=== PATIENT | male | born 2005 | race African-American/Black ===

== ENCOUNTER 2023-03-30 18:23 | Emergency (ER) | payer SELFPAY ==
[2023-03-30 19:14] LABS: CORONAVIRUS COVID-19 NAA NEGATIVE (NEGATIVE); INFLUENZA A NAA NEGATIVE (NEGATIVE); INFLUENZA B NAA NEGATIVE (NEGATIVE)
[2023-03-30] MEDS ORDERED: Ondansetron 4 MG Tab.DIS PO ONE (19:50)
== END 2023-03-30 19:56 | disposition home or self-care (01) ==
LOC: MW.ED 18:23
DX: J11.1 Influenza due to unidentified influenza virus with other respiratory manifestations (principal); Z20.822 Contact with and (suspected) exposure to COVID-19
CPT/HCPCS: 0240U; 87651; 99283; A9270

== ENCOUNTER 2023-08-26 13:24 | Emergency (ER) | payer SELFPAY ==
[2023-08-26] MEDS: Ketorolac 30 MG/ML SDV IVPUSH ONE (14:23)
[2023-08-26] MEDS: Sodium Chloride 0.9% 10 ML Syringe FLUSH PRN (14:23)
[2023-08-26] MEDS: Sodium Chloride 0.9% 1,000 ML IV ONE (14:23)
[2023-08-26] MEDS: Sodium Chloride 0.9% 2.5 ML Syringe FLUSH PRN (14:23)
[2023-08-26 14:24] LABS: BASOPHILS ABSOLUTE AUTO 0.02 K/uL (0.00-0.30); BASOPHILS PERCENT AUTO 0.2 % (0.0-1.0); EOSINOPHILS ABSOLUTE AUTO 0.03 K/uL (0.00-0.70); EOSINOPHILS PERCENT AUTO 0.4 % (0.0-5.0); HEMATOCRIT 41.4 % (42.0-52.0); HEMOGLOBIN 14.8 g/dL (14.0-18.0); IMMATURE GRAN ABSOLUTE AUTO 0.02 K/uL (0.00-0.05); IMMATURE GRAN PERCENT AUTO 0.2 % (0.0-0.4); LYMPHOCYTES ABSOLUTE AUTO 0.66 K/uL (2.00-8.80); LYMPHOCYTES PERCENT AUTO 7.7 % (50.0-65.0); MEAN CORPUSCULAR HEMOGLOBIN 30.8 pg (28.0-32.0); MEAN CORPUSCULAR HGB CONC 35.7 g/dL (32.0-36.0); MEAN CORPUSCULAR VOLUME 86.3 fL (83.0-99.0); MEAN PLATELET VOLUME 8.7 fL (9.4-12.4); MONOCYTES ABSOLUTE AUTO 1.47 K/uL (0.10-1.40); MONOCYTES PERCENT AUTO 17.2 % (2.0-10.0); NEUTROPHILS ABSOLUTE AUTO 6.34 K/uL (1.50-8.50); NEUTROPHILS PERCENT AUTO 74.3 % (35.0-45.0); PLATELET COUNT,PLT 270 K/uL (150-400); WHITE BLOOD CELL COUNT,WBC 8.54 K/uL (4.5-13.5)
[2023-08-26 14:26] LABS: CORONAVIRUS COVID-19 NAA NEGATIVE (NEGATIVE); INFLUENZA A NAA NEGATIVE (NEGATIVE); INFLUENZA B NAA NEGATIVE (NEGATIVE); RESPIRATORY SYNCYTIAL VIR NAA NEGATIVE (NEGATIVE)
[2023-08-26 14:58] LABS: A/G RATIO 1.1 (0.9-1.6); BILIRUBIN TOTAL 1.6 mg/dL (0.2-1.0); CARBON DIOXIDE,CO2 25.4 mmol/L (21.0-32.0); CREATININE 1.3 mg/dL (0.8-1.3); EST CRCL DRUG DOSING (CG) 87.96 mL/min; MAGNESIUM 1.7 mg/dL (1.8-2.4); POTASSIUM,K 3.7 mmol/L (3.5-5.1); PROTEIN TOTAL,TP 7.8 g/dL (6.4-8.2)
== END 2023-08-26 16:20 | disposition home or self-care (01) ==
LOC: MW.ED 13:24
DX: M79.18 Myalgia, other site (principal); M54.50 Low back pain, unspecified; R74.8 Abnormal levels of other serum enzymes; Z75.8 Other problems related to medical facilities and other health care
CPT/HCPCS: 0241U; 36415; 80053; 82550; 83690; 83735; 85025; 96361; 96374; 99283; J1885; J3490; J7030; 99284

== ENCOUNTER 2023-09-23 17:56 | Emergency (ER) | payer SELFPAY | END 2023-09-23 20:35 | disposition home or self-care (01) | LOC: MW.ED 17:56 | DX: S93.402A Sprain of unspecified ligament of left ankle, initial encounter (principal); X50.1XXA Overexertion from prolonged static or awkward postures, initial encounter; Y93.67 Activity, basketball | CPT/HCPCS: 73562-26-LT; 73562-LT; 73590-26-LT; 73590-LT; 73610-26-LT; 73610-LT; 73630-26-LT; 73630-LT; 99283 ==

== ENCOUNTER 2023-10-18 19:18 | Emergency (ER) | payer SELFPAY | END 2023-10-18 20:50 | disposition home or self-care (01) | LOC: MW.ED 19:18 | DX: S93.401A Sprain of unspecified ligament of right ankle, initial encounter (principal); F17.210 Nicotine dependence, cigarettes, uncomplicated; Z75.8 Other problems related to medical facilities and other health care; X50.1XXA Overexertion from prolonged static or awkward postures, initial encounter | CPT/HCPCS: 73610-26-RT; 73610-RT; 73630-26-RT; 73630-RT; 99283 ==

== ENCOUNTER 2023-12-27 00:45 | Emergency (ER) | payer SELFPAY ==
[2023-12-27] MEDS: Doxycycline 100 MG Cap PO ONE (01:37)
[2023-12-27] MEDS: Ibuprofen 400 MG Tab PO ONE (01:37)
== END 2023-12-27 01:40 | disposition home or self-care (01) ==
LOC: MW.ED 00:45
DX: R04.2 Hemoptysis (principal); Z91.048 Other nonmedicinal substance allergy status; Z91.011 Allergy to milk products; Z79.51 Long term (current) use of inhaled steroids; Z79.899 Other long term (current) drug therapy
CPT/HCPCS: 71046; 99283; A9270

== ENCOUNTER 2024-04-07 22:47 | Emergency (ER) | payer SELFPAY ==
[2024-04-08] MEDS: Acetaminophen/HYDROcodone 325-10 MG Tab PO STA (01:03)
== END 2024-04-08 03:05 | disposition home or self-care (01) ==
LOC: MW.ED 22:47
DX: S02.5XXA Fracture of tooth (traumatic), initial encounter for closed fracture (principal); Z91.011 Allergy to milk products; Z91.09 Other allergy status, other than to drugs and biological substances; W21.02XA Struck by soccer ball, initial encounter
CPT/HCPCS: 70486; 99283; A9270

== ENCOUNTER 2024-08-07 22:24 | Emergency (ER) | payer SELFPAY ==
[2024-08-08] MEDS: Dexamethasone 4 MG Tab PO ONE (00:53)
[2024-08-08] MEDS: Albuterol 8 GM Inhaler INH ONE (00:53)
== END 2024-08-08 01:01 | disposition home or self-care (01) ==
LOC: MW.ED 22:24
DX: R06.2 Wheezing (principal); Z91.048 Other nonmedicinal substance allergy status; Z91.011 Allergy to milk products; Z79.51 Long term (current) use of inhaled steroids
CPT/HCPCS: 87428; 99284; A9270; J8540; 99283

== ENCOUNTER 2024-09-13 18:28 | Emergency (ER) | payer SELFPAY | END 2024-09-13 19:56 | disposition home or self-care (01) | LOC: MW.ED 18:28 | DX: Z91.011 Allergy to milk products (principal); Z91.048 Other nonmedicinal substance allergy status; J01.10 Acute frontal sinusitis, unspecified | CPT/HCPCS: 99283 ==

== ENCOUNTER 2024-09-25 20:01 | Emergency (ER) | payer SELFPAY ==
[2024-09-25] MEDS: Ondansetron 4 MG Tab.DIS PO ONE (20:28)
== END 2024-09-25 20:55 | disposition home or self-care (01) ==
LOC: MW.ED 20:01
DX: Z76.0 Encounter for issue of repeat prescription (principal); Z75.3 Unavailability and inaccessibility of health-care facilities; Z91.048 Other nonmedicinal substance allergy status; Z91.011 Allergy to milk products; Z79.899 Other long term (current) drug therapy
CPT/HCPCS: 99281; A9270; 99282

== ENCOUNTER 2024-11-13 07:21 | Emergency (ER) | payer SELFPAY | END 2024-11-13 08:20 | disposition home or self-care (01) | LOC: MW.ED 07:21 | DX: Z76.0 Encounter for issue of repeat prescription (principal); J45.909 Unspecified asthma, uncomplicated; Z87.891 Personal history of nicotine dependence; Z91.011 Allergy to milk products; Z91.048 Other nonmedicinal substance allergy status; Z79.51 Long term (current) use of inhaled steroids | CPT/HCPCS: 99281; 99282 ==

== ENCOUNTER 2024-11-15 07:49 | Emergency (ER) | payer SELFPAY | END 2024-11-15 09:10 | disposition home or self-care (01) | LOC: MW.ED 07:49 | DX: J40 Bronchitis, not specified as acute or chronic (principal); Z91.011 Allergy to milk products; Z91.048 Other nonmedicinal substance allergy status; Z75.3 Unavailability and inaccessibility of health-care facilities; Z79.51 Long term (current) use of inhaled steroids; Z79.899 Other long term (current) drug therapy | CPT/HCPCS: 71046; 71046-26; 99282; 99284 ==

== ENCOUNTER 2025-01-23 09:09 | Emergency (ER) | payer OTHER | END 2025-01-23 10:49 | disposition home or self-care (01) | LOC: MW.ED 09:09 | DX: B34.9 Viral infection, unspecified (principal); Z91.0110 Allergy to milk products, unspecified; Z91.048 Other nonmedicinal substance allergy status | CPT/HCPCS: 71046; 71046-26; 87428-QW; 99283; 99284 ==

== ENCOUNTER 2025-02-19 06:30 | Emergency (ER) | payer OTHER | END 2025-02-19 07:56 | disposition home or self-care (01) | LOC: MW.ED 06:30 | DX: J42 Unspecified chronic bronchitis (principal); F12.90 Cannabis use, unspecified, uncomplicated; J45.909 Unspecified asthma, uncomplicated; Z91.048 Other nonmedicinal substance allergy status; Z91.0110 Allergy to milk products, unspecified; Z79.899 Other long term (current) drug therapy | CPT/HCPCS: 71045; 87428; 99285; J7620; J8540; 99283; A9270-GY ==

== ENCOUNTER 2025-02-23 00:50 | Emergency (ER) | payer OTHER ==
[2025-02-23 01:50] LABS: BASOPHILS ABSOLUTE AUTO 0.05 K/uL (0.00-0.20); BASOPHILS PERCENT AUTO 0.5 % (0.0-1.0); EOSINOPHILS ABSOLUTE AUTO 0.42 K/uL (0.00-0.45); EOSINOPHILS PERCENT AUTO 4.5 % (0.0-6.0); IMMATURE GRAN ABSOLUTE AUTO 0.03 K/uL (0.00-0.05); IMMATURE GRAN PERCENT AUTO 0.3 % (0.0-0.4); LYMPHOCYTES ABSOLUTE AUTO 2.78 K/uL (1.00-4.80); LYMPHOCYTES PERCENT AUTO 29.7 % (24.0-44.0); MEAN PLATELET VOLUME 8.5 fL (9.4-12.4); MONOCYTES ABSOLUTE AUTO 0.82 K/uL (0.00-0.80); MONOCYTES PERCENT AUTO 8.8 % (0.0-8.0); NEUTROPHILS ABSOLUTE AUTO 5.25 K/uL (1.80-7.70); NEUTROPHILS PERCENT AUTO 56.2 % (41.0-71.0); NRBC ABSOLUTE 0.00 K/uL (0.00-0.02); NRBC PERCENT 0.0 /100WBC (0.0-0.2); PLATELET COUNT,PLT 266 K/uL (150-400); RED BLOOD CELL COUNT 4.68 M/uL (4.52-5.90); WHITE BLOOD CELL COUNT,WBC 9.35 K/uL (3.9-11.3)
[2025-02-23 02:21] LABS: A/G RATIO 0.9 (0.9-1.6); ALANINE AMINOTRANSFERASE,ALT 29 IU/L (14-63); ASPARTATE AMNIOTRANSFERASE,AST 8 IU/L (15-37); BILIRUBIN TOTAL 1.0 mg/dL (0.2-1.0); BLOOD UREA NITROGEN,BUN 15 mg/dL (7.0-18.0); CARBON DIOXIDE,CO2 30.3 mmol/L (21.0-32.0); CHLORIDE,CL 104 mmol/L (98-107); CREATININE 1.5 mg/dL (0.8-1.3); ESTIMATED GFR 68 mL/min (>60); GLUCOSE RANDOM 79 mg/dL (74-106); POTASSIUM,K 4.0 mmol/L (3.5-5.1); PRO B-TYPE NATRIUR PEPT,BNPPRO 8 pg/mL (0-125); PROTEIN TOTAL,TP 7.4 g/dL (6.4-8.2); SODIUM,NA 139 mmol/L (136-148)
== END 2025-02-23 04:28 | disposition home or self-care (01) ==
LOC: MW.ED 00:50
DX: R06.02 Shortness of breath (principal); J45.909 Unspecified asthma, uncomplicated; Z91.09 Other allergy status, other than to drugs and biological substances; Z91.0110 Allergy to milk products, unspecified; Z79.51 Long term (current) use of inhaled steroids
CPT/HCPCS: 36415; 80053; 83735; 83880; 84484; 85025; 85379; 87651; 93005; 93010; 99284; 99285